=== PATIENT | male | born 1965 | race Caucasian/White ===

== ENCOUNTER 2016-12-24 06:03 | Emergency (ER) | payer SELFPAY ==
[~2016-12-24 06:03] MED LIST: AMOXICILLIN PO; CLEOCIN PO; FLOXIN OTIC5 M1 AS; IBUPROFEN PO; IMODIUM2 MG PO; NO MEDICATIONS; PEN-VEE K PO; PERCOCET 10/3251 TAB PO; PERCOCET10 PO; PHENERGAN25 M1 PO; PRINIVIL20 M1 PO; VICODIN 5/500 T1 TAB PO
[2016-12-24] MEDS ORDERED: FLEXERIL10 MG PO (06:36)
[2016-12-24] MEDS ORDERED: PREDNISONE PO (06:37)
[2016-12-24] MEDS ORDERED: NAPROSYN500 MG PO (06:37)
== END 2016-12-24 06:44 | disposition home or self-care (01) ==
LOC: SED 06:03
DX: M54.42 Lumbago with sciatica, left side (principal); F17.200 Nicotine dependence, unspecified, uncomplicated; Z79.899 Other long term (current) drug therapy
CPT/HCPCS: 96372; 99283; J1885